=== PATIENT | female | born 1950 | race Caucasian/White ===

== ENCOUNTER 2021-11-30 13:01 | Outpatient (CLI) | payer MEDICARE, BC, SELFPAY | END 2021-11-30 13:02 | disposition home or self-care (01) | LOC: US 13:03 | PROVIDERS: PCP Emergency Medicine; Visit Provider Emergency Medicine | DX: M79.605 Pain in left leg (principal); R20.0 Anesthesia of skin | CPT/HCPCS: 93922 ==

== ENCOUNTER 2022-01-04 15:05 | Outpatient (CLI) | payer MEDICARE, BC, SELFPAY ==
[2022-01-04 15:07] LABS: Albumin* 4.7 g/dL (3.3-5.0); Chloride* 101 mmol/L (96-114)
[2022-01-04 15:08] LABS: Potassium* 4.2 mmol/L (3.6-5.1); Sodium* 140 mmol/L (135-149)
[2022-01-04 15:10] LABS: Alkaline Phosphatase* 69 U/L (40-150); Aspartate Amino Transferase* 45 U/L (12-35); Bilirubin Total* 0.9 mg/dL (0.1-1.5); Blood Urea Nitrogen* 18 mg/dL (7-30); Carbon Dioxide* 27 mmol/L (20-32); Cholesterol* 188 mg/dL (90-199); Creatinine* 0.9 mg/dL (0.5-1.5); Estimated Glomerular Filt Rate 69 ml/min; Glucose* 103 mg/dL (60-115); Total Protein* 7.2 g/dL (6.0-8.3); Triglycerides* 142 mg/dL (40-149)
[2022-01-04 15:11] LABS: Alanine Aminotransferase* 39 U/L (4-35); Calcium* 9.8 mg/dL (8.4-10.6); HDL Cholesterol* 64 mg/dL (>=50); LDL Cholesterol Calculated 96 mg/dL (<100)
== END 2022-01-04 15:06 | disposition home or self-care (01) ==
PROVIDERS: PCP Emergency Medicine; Visit Provider Emergency Medicine
DX: I10 Essential (primary) hypertension (principal)
CPT/HCPCS: 80053; 80061

== ENCOUNTER 2022-01-20 12:14 | Outpatient (CLI) | payer MEDICARE, BC, SELFPAY | END 2022-01-20 12:15 | disposition home or self-care (01) | LOC: NFLDREF 12:16 | PROVIDERS: PCP Emergency Medicine; Visit Provider Obstetrics & Gynecology | DX: G89.29 Other chronic pain (principal); R10.2 Pelvic and perineal pain; N89.8 Other specified noninflammatory disorders of vagina; N39.41 Urge incontinence | CPT/HCPCS: 87086; 87186 ==

== ENCOUNTER 2022-03-31 10:01 | Outpatient (CLI) | payer MEDICARE, BC, SELFPAY ==
[2022-03-31 10:52] LABS: Creatinine* 0.7 mg/dL (0.5-1.5); Estimated Glomerular Filt Rate 94 ml/min
--- NOTE | 2022-03-31 11:00 | CRLHL7_ITS ---
For Patients: As a result of the Century Cures Act, medical imaging exams and procedure reports are released immediately into your electronic medical record. You may view this report before your referring provider. If you have questions, please contact your health care provider. CT ABDOMEN AND PELVIS WITH CONTRAST, 03/31/2022 CLINICAL HISTORY: Multiple abdominal surgeries including colectomy and ileostomy with vaginal discharge. COMPARISON: No comparisons are available. TECHNIQUE: Routine post-contrast CT of the abdomen and pelvis performed in the portal venous phase and delayed phase. 92 cc of Isovue-370 administered intravenously. FINDINGS: Postoperative changes of colectomy noted with right lower quadrant ileostomy. There are a few mildly distended loops of small bowel within the midline of the lower pelvis containing air and fluid. No mechanical obstruction. There is also air and fluid within the vagina. Some air is also present within the urethra. Delayed images demonstrate normal opacification of the ureters, renal collecting systems, and bladder without bladder extravasation. Postoperative changes to the midline of the abdominal wall without incisional hernia. No adenopathy. Multifocal postoperative changes to the omental fat. Mild hepatic steatosis. Gallbladder normal. Normal pancreas and spleen. Adrenal glands normal. Normal kidneys. Mild scarring in both lung bases. Tiny hiatal hernia. Degenerative changes. No fracture. 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 Colorectal surgical consultation recommended. Please note that all CT scans at this facility use dose modulation, iterative reconstruction and/or weight-based dosing when appropriate to reduce radiation dose to as low as reasonably achievable. Shen Olivia M.D. Diagnostic Radiologist [email or web address] SAVITA/damion bruno/Dictated by: Shen Olivia MD @ 04/06/2022 12:15:00 PM (Electronically Signed)
== END 2022-03-31 10:02 | disposition home or self-care (01) ==
LOC: CT 10:02
PROVIDERS: PCP Emergency Medicine; Visit Provider Obstetrics & Gynecology
DX: N89.8 Other specified noninflammatory disorders of vagina (principal)
CPT/HCPCS: 36415; 74177; 82565; Q9967

== ENCOUNTER 2022-04-29 11:22 | Outpatient (CLI) | payer MEDICARE, BC, SELFPAY ==
--- NOTE | 2022-04-29 11:30 | CRLHL7_ITS ---
For Patients: As a result of the Century Cures Act, medical imaging exams and procedure reports are released immediately into your electronic medical record. You may view this report before your referring provider. If you have questions, please contact your health care provider. BILATERAL SCREENING MAMMOGRAM WITH COMPUTER-AIDED DETECTION AND TOMOSYNTHESIS TECHNIQUE: CC and MLO views were obtained. These mammographic images have been obtained using full-field digital technique. These mammographic images were interpreted with the benefit of computer-aided detection. Breast Tomosynthesis was used in this interpretation. COMPARISON FILM: 12/18/2020, 11/26/2019, 10/13/2018. FINDINGS: There are scattered areas of fibroglandular density IMPRESSION: There is no radiographic evidence for malignancy. ASSESSMENT: BI-RADS Category 2: Benign RECOMMENDATION: Routine screening mammogram in 1 year. A lay language report of this examination will be provided to the patient. Shen Olivia M.D. Diagnostic Radiologist [email or web address] ANDREW/Dictated by: Shen Olivia MD @ 04/29/2022 1:05:00 PM (Electronically Signed)
== END 2022-04-29 11:23 | disposition home or self-care (01) ==
LOC: MAMMO 11:24
PROVIDERS: PCP Emergency Medicine; Visit Provider Emergency Medicine
DX: Z12.31 Encounter for screening mammogram for malignant neoplasm of breast (principal)
CPT/HCPCS: 77063; 77067

== ENCOUNTER 2022-07-01 10:39 | Outpatient (CLI) | payer MEDICARE, BC, SELFPAY | END 2022-07-01 10:40 | disposition home or self-care (01) | LOC: NFLDREF 07-03 11:20 | PROVIDERS: PCP Emergency Medicine; Referring Provider Emergency Medicine; Visit Provider Obstetrics & Gynecology | DX: R30.0 Dysuria (principal) | CPT/HCPCS: 87086; 87186 ==

== ENCOUNTER 2022-07-30 13:32 | Outpatient (CLI) | payer MEDICARE, BC, SELFPAY | END 2022-07-30 13:33 | disposition home or self-care (01) | LOC: NFLDREF 08-01 05:09 | PROVIDERS: PCP Emergency Medicine; Referring Provider Emergency Medicine; Visit Provider Nurse Practitioner Family | DX: N39.0 Urinary tract infection, site not specified (principal) | CPT/HCPCS: 87086 ==

== ENCOUNTER 2023-01-25 09:12 | Outpatient (CLI) | payer MEDICARE, BC, SELFPAY | END 2023-01-25 09:13 | disposition home or self-care (01) | LOC: NFLDREF 01-26 11:50 | PROVIDERS: PCP Emergency Medicine; Referring Provider Emergency Medicine; Visit Provider Emergency Medicine | DX: E55.9 Vitamin D deficiency, unspecified (principal); E78.5 Hyperlipidemia, unspecified | CPT/HCPCS: 80061; 82306 ==

== ENCOUNTER 2023-01-27 13:16 | Outpatient (CLI) | payer MEDICARE, BC, SELFPAY | END 2023-01-27 13:17 | disposition home or self-care (01) | LOC: LKVREF 13:17 | PROVIDERS: PCP Emergency Medicine; Visit Provider Emergency Medicine | DX: R53.83 Other fatigue (principal) | CPT/HCPCS: 84443 ==

== ENCOUNTER 2023-02-07 10:38 | Outpatient (CLI) | payer MEDICARE, BC, SELFPAY | END 2023-02-07 10:39 | disposition home or self-care (01) | LOC: NFLDREF 02-08 20:01 | PROVIDERS: PCP Emergency Medicine; Referring Provider Emergency Medicine; Visit Provider Emergency Medicine | DX: D75.89 Other specified diseases of blood and blood-forming organs (principal) | CPT/HCPCS: 82607; 82746 ==

== ENCOUNTER 2023-06-08 14:57 | Outpatient (CLI) | payer MEDICARE, BC, SELFPAY ==
--- NOTE | 2023-06-08 15:00 | MM_ITS ---
Final Report Patient: MARTHA FRANCO Facility:?[facility] Patient ID:?[id number] Site Patient [id number]:?[id number]. Site :?1950 Study:?XRay Breast Bilateral 3D W/CAD-06/08/2023 3:51:05 PM Ordering Physician:Magda Guajardo Final Report: BILATERAL DIGITAL TOMOSYNTHESIS SCREENING MAMMOGRAM WITH COMPUTER-AIDED DETECTION CLINICAL HISTORY: Routine screening exam. COMPARISON: 04/29/2022, 12/18/2020, 11/26/2019 TECHNIQUE: Digital tomosynthesis mammogram in CC and MLO projections including computer- aided detection (CAD). BREAST COMPOSITION: Scattered fibroglandular densities. FINDINGS: RIGHT Breast: Normal breast tissue. No masses or achritectural distortion. No suspicious calcifications or adenopathy. LEFT Breast: Normal breast tissue. No masses or achritectural distortion. No suspicious calcifications or adenopathy. IMPRESSION: No suspicious findings. RECOMMENDATIONS: Annual bilateral screening mammography. BI-RADS category 1. Negative. Dictated by Shen Olivia MD @ 06/10/2023 9:44:08 AM (Electronic Signature)
--- NOTE | 2023-06-08 15:30 | XR_ITS ---
Patient: MARTHA FRANCO Facility:?[facility] Patient ID:?[id number] Site Patient ID:?[id number]. Site :?1950 Study:?DEXA-Bone Density-06/08/2023 4:00:45 PM Ordering Physician:?ELVIN ACOSTA Final Report: DXA BONE MINERAL DENSITY STUDY Reason for exam: Osteopenia. Current height (in): 67. Weight (lb): 169. Menopause age: 48. Ethnicity: White. 1. Have you had a previous hip or vertebral fracture? No. 2. Have you had any fractures during your adult life which did not result from significant trauma (e.g., auto accident)? No. 3. Did either of your parents have a hip fracture? Yes. 4. Do you smoke? No. 5. Have you ever taken Glucocorticoids? No. 6. Do you have rheumatoid arthritis? No. 7. Do you have secondary osteoporosis? No. 8. Do you drink 3 or more alcoholic drinks per day? No. 9. Are you being treated for osteoporosis? No. 10. Have you ever taken any of the following medications: Actonel, Evista, Fosamax, Miacalcin, Reclast, Boniva, Forteo, HRT (i.e., estrogen/hormone therapy), Protelos, Prolia, Vitamin D, Calcium, other ? please specify. ANSWER: Yes, Fosamax (i.e. raloxifene), vitamin D, HRT (i.e. estrogen/hormone therapy), and calcium. 11. Do you have any of the following medical conditions: Anorexia or bulimia, asthma or emphysema, end stage renal disease, hyperparathyroidism, any seizure disorders, cancer, inflammatory bowel diseases, hysterectomy, other ? please specify. ANSWER: Yes, inflammatory bowel diseases and hysterectomy. 12. What was your maximum height (inches)? 68. 13. Do you perform weight bearing exercise regularly? Yes. 14. Do you regularly consume dairy products? Yes. 15. Do you drink caffeinated beverages? No. If female: 16. At what age did your period start? 15. 17. Are you premenopausal? No. 18. How many full-term pregnancies have you had? 1. 19. Have you ever missed your period for more than 6 months in a row (not including or menopause)? No. TECHNIQUE: Bone mineral density study was performed using the [employer]. FINDINGS: The results of the study expressed as bone mineral density (BMD) are as follows: Lumbar spine L1 to L2: BMD: 0.870 g/cm2. T-score: -1.0. Z-score: 1.0 Neck Left: BMD: 0.564 g/cm2. T-score: -2.6. Z-score: -0.7 Right: BMD: 0.597 g/cm2. T-score: -2.3. Z-score: -0.4 Total Left: BMD: 0.786 g/cm2. T-score: -1.3. Z-score: 0.3 Right: BMD: 0.803 g/cm2. T-score: -1.1. Z-score: 0.4 IMPRESSION: Osteoporosis. *Comparison exams done prior to 09/2019 were performed on different unit, [facility]. COMPARISON: Compared with scan of 02/28/2020, the bone mineral density has decreased by 1.3 percent at the spine and decreased by 3.3 percent at the hip. Dictated by: Shen Olivia MD @06/14/2023 8:28:42 AM jj/Dictated by: Shen Olivia MD @ 06/14/2023 8:28:00 AM Signed by:?Shen Olivia MD @06/19/2023 6:25:44 AM (Electronic Signature)
== END 2023-06-08 14:58 | disposition home or self-care (01) ==
PROVIDERS: PCP Emergency Medicine; Visit Provider Emergency Medicine
DX: Z12.31 Encounter for screening mammogram for malignant neoplasm of breast (principal); M85.80 Other specified disorders of bone density and structure, unspecified site; M81.0 Age-related osteoporosis without current pathological fracture
CPT/HCPCS: 77063; 77067; 77080

== ENCOUNTER 2023-07-26 19:06 | Outpatient (CLI) | payer MEDICARE, BC, SELFPAY | END 2023-07-26 19:07 | disposition home or self-care (01) | LOC: LKVREF 19:07 | PROVIDERS: PCP Emergency Medicine; Visit Provider Emergency Medicine | DX: M81.0 Age-related osteoporosis without current pathological fracture (principal) | CPT/HCPCS: 80048 ==

== ENCOUNTER 2024-02-21 10:42 | Outpatient (CLI) | payer MEDICARE, BC, SELFPAY | END 2024-02-21 10:43 | disposition home or self-care (01) | PROVIDERS: PCP Emergency Medicine; Visit Provider Emergency Medicine | DX: Z00.00 Encounter for general adult medical examination without abnormal findings (principal); E78.5 Hyperlipidemia, unspecified; M81.0 Age-related osteoporosis without current pathological fracture; D75.89 Other specified diseases of blood and blood-forming organs; I10 Essential (primary) hypertension; K50.90 Crohn's disease, unspecified, without complications | CPT/HCPCS: 80048; 80061; 82306; 82607; 83735 ==

== ENCOUNTER 2024-07-23 09:14 | Outpatient (CLI) | payer MEDICARE, BC, SELFPAY ==
--- NOTE | 2024-07-23 09:15 | CRLHL7_ITS ---
For Patients: As a result of the Century Cures Act, medical imaging exams and procedure reports are released immediately into your electronic medical record. You may view this report before your referring provider. If you have questions, please contact your health care provider. BILATERAL SCREENING MAMMOGRAM WITH COMPUTER-AIDED DETECTION AND TOMOSYNTHESIS TECHNIQUE: CC and MLO views were obtained. These mammographic images have been obtained using full-field digital technique. These mammographic images were interpreted with the benefit of computer-aided detection. Breast Tomosynthesis was used in this interpretation. COMPARISON FILM: 06/08/23, 04/29/22, 12/18/20. FINDINGS: There are scattered areas of fibroglandular density. IMPRESSION: There is no radiographic evidence for malignancy. ASSESSMENT: BI-RADS Category 1: Negative RECOMMENDATION: Routine screening mammogram in 1 year. A lay language report of this examination will be provided to the patient. Shen Olivia M.D. Diagnostic Radiologist [email or web address] SP/Dictated by: Shen Olivia MD @ 07/26/2024 11:46:00 AM (Electronically Signed)
== END 2024-07-23 09:15 | disposition home or self-care (01) ==
LOC: MAMMO 09:14
PROVIDERS: PCP Emergency Medicine; Visit Provider Emergency Medicine
DX: Z12.31 Encounter for screening mammogram for malignant neoplasm of breast (principal)
CPT/HCPCS: 77063; 77067

== ENCOUNTER 2024-12-27 14:27 | Outpatient (CLI) | payer MEDICARE, BC, SELFPAY | END 2024-12-27 14:28 | disposition home or self-care (01) | PROVIDERS: PCP Family Medicine; Visit Provider Family Medicine | DX: Z01.818 Encounter for other preprocedural examination (principal) | CPT/HCPCS: 80053; 87070; 87081 ==